=== PATIENT | female | born 1995 | race Caucasian/White ===

== ENCOUNTER 2017-09-18 19:49 | Emergency (ER) | payer BC ==
[2017-09-18 20:17] LABS: #Lymphocytes 0.4 thou/uL (1.20-3.40); #Monocytes 0.2 thou/uL (0.11-0.59); #Neutrophils 8.6 thou/uL (1.40-6.50); %Basophils 0.2 % (0.0-1.0); %Neutrophils 93.8 % (31.0-61.0); Hemoglobin 13.6 g/dL (12.0-16.0); Mean Corpuscular HGB CONC 35.3 g/dL (32.0-36.0); Mean Corpuscular Hemoglobin 31.3 pg (25.0-35.0); Mean Corpuscular Volume 88.7 fl (77.0-87.0); Mean Platelet Volume 7.6 fL (7.4-10.4); Platelet Count 189 thou/uL (130-400); RBC Distribution Width 10.6 % (11.5-14.5); Red Blood Cell (RBC) Count 4.34 mill/uL (4.00-5.20); White Blood Cell (WBC) Count 9.2 thou/uL (4.8-10.8)
[2017-09-18 20:24] LABS: BHCG - Serum Negative (NEGATIVE); Pregs Control Background? CLEAR/WHITE (CLR/WHITE); Pregs Control Bar Appear? YES (CONTROL BAR)
[2017-09-18 20:33] LABS: ALT (SGPT) 13 U/L (8-55); AST (SGOT) 15 U/L (5-30); Albumin 3.8 g/dL (3.5-5.0); Alkaline Phosphatase 50 U/L (40-150); Anion Gap 15 mmol/L (10-20); BUN (Urea Nitrogen) 15 mg/dL (8.4-21.0); Bilirubin, Total 0.7 mg/dL (0.2-1.2); Calc. Creatinine Clearance 0 mL/min (70-130); Calcium 8.2 mg/dL (7.8-10.44); Carbon Dioxide 20 mmol/L (22-29); Chloride 102 mmol/L (98-107); Estimated GFR-MDRD Greater than 90; Globulin 2.8 g/dL (2.4-3.5); Glucose 106 mg/dL (70-105); Potassium 3.7 mmol/L (3.5-5.1); Protein, Total 6.6 g/dL (6.0-8.3); Sodium 133 mmol/L (136-145)
--- NOTE | 2017-09-18 21:50 | CT ---
CT PULMONARY ANGIO OF CHEST INCLUDING 3D RENDERIN09/18/17 HISTORY: 21-year-old female with chest pain. No significant CT evidence for acute pulmonary embolism. Mediastinum is unremarkable. No pleural or p ericardial effusion. Visualized upper abdomen is unremarkable. Aorta is unremarkable. IMPRESSION: No significant CT evidence for acute pulmonary embolism. No acute process in the chest. POS: [facility]
== END 2017-09-18 22:06 | disposition home or self-care (01) ==
LOC: SCSER 19:49
DX: R11.2 Nausea with vomiting, unspecified (principal); R07.9 Chest pain, unspecified
CPT/HCPCS: 71275; 80053; 84703; 85025; 93005; 96360

== ENCOUNTER 2023-08-01 02:48 | Emergency (ER) | payer BC ==
[2023-08-01] MEDS ORDERED: Ketorolac Tromethamine 30 MG/ML VIAL ONE (04:03)
[2023-08-01 04:08] LABS: Amphetamine Not Detected (NotDetected); Barbiturates Screen Not Detected (NotDetected); Benzodiazepine Screen Not Detected (NotDetected); Cocaine Metabolite Screen Not Detected (NotDetected); Methadone Not Detected (NotDetected); Methamphetamine Not Detected (NotDetected); Opiate Screen Not Detected (NotDetected); Oxycodone Screen Not Detected (NotDetected); Phencyclidine (PCP) Not Detected (NotDetected); THC/Cannabinoid Screen Not Detected (NotDetected); Tricyclic Screen Not Detected (NotDetected)
[2023-08-01 04:16] LABS: #Basophils 0.1 thou/uL (0.0-0.2); #Eosinphils 0.1 thou/uL (0.0-0.7); #Monocytes 0.4 thou/uL (0.11-0.59); #Neutrophils 4.7 thou/uL (1.40-6.50); %Basophils 0.6 % (0.0-1.0); %Lymphocytes 35.3 % (21.0-51.0); %Monocytes 4.9 % (0.0-10.0); Hematocrit 37.7 % (36.0-47.0); Mean Corpuscular HGB CONC 34.5 g/dL (32.0-36.0); Mean Corpuscular Hemoglobin 32.7 pg (27.0-31.0); Mean Corpuscular Volume 94.7 fl (78.0-98.0); Mean Platelet Volume 9.1 fL (7.4-10.4); Platelet Count 286 10x3/uL (130-400); RBC Distribution Width 11.7 % (11.5-14.5); Red Blood Cell (RBC) Count 3.98 mill/uL (4.20-5.40); White Blood Cell (WBC) Count 8.2 10x3/uL (4.8-10.8)
[2023-08-01 04:21] LABS: Pregnancy Test - Urine (BHCG) Negative (Negative); Pregu Control Background? CLEAR/WHITE (CLR/WHITE); Pregu Control Bar Appear? YES (CONTROL BAR)
[2023-08-01 04:41] LABS: ALT (SGPT) 13 U/L (8-55); AST (SGOT) 18 U/L (5-34); Albumin 4.3 g/dL (3.5-5.0); Alkaline Phosphatase 86 U/L (40-110); Anion Gap 16 mmol/L (10-20); BUN (Urea Nitrogen) 7 mg/dL (7.0-18.7); Bilirubin, Total 0.2 mg/dL (0.2-1.2); Calc. Creatinine Clearance 0 mL/min (70-130); Calcium 8.1 mg/dL (7.8-10.44); Carbon Dioxide 20 mmol/L (22-29); Chloride 115 mmol/L (98-107); Estimated GFR 127; Glucose 80 mg/dL (70-105); Lipase 34 U/L (8-78); Potassium 3.6 mmol/L (3.5-5.1); Protein, Total 7.3 g/dL (6.0-8.3); Sodium 147 mmol/L (136-145)
[2023-08-01 04:43] LABS: Troponin I Less than 0.010 ng/mL (< 0.028)
[2023-08-01 04:51] LABS: Bacteria/HPF None Seen HPF (None Seen); Bilirubin Negative (Negative); Blood, Urine Negative (Negative); CAUTI Indications for Culture Alt mental st,lethar; Clarity Clear (Clear); Glucose, Urine (Dipstick) Normal (Negative); Ketone, Urine Negative (Negative); Leukocyte Negative Leu/uL (Negative); Nitrite Negative (Negative); Protein, Urine (Dipstick) Negative (Neg-Trace); RBC/HPF 0-3 HPF (0-3); Specific Gravity 1.002 (1.002-1.036); Specific Gravity, Urine 1.002 (1.002-1.036); Squamous Epithelial 0-3 HPF (0-3); Urine Culture Reflex No No; Urobilinogen Normal mg/dL (Less than 2); WBC/HPF 0-3 HPF (0-3)
[2023-08-01 05:25] LABS: Acetaminophen Less than 10 mcg/mL (10.0-30.0); Alcohol 334.5 mg/dL (Less than 10); Salicylate Less than 8.0 mg/dL (15.0-30.0)
== END 2023-08-01 05:20 | disposition home or self-care (01) ==
LOC: ERS 02:48
DX: F10.129 Alcohol abuse with intoxication, unspecified (principal); Y90.9 Presence of alcohol in blood, level not specified
CPT/HCPCS: 36415; 71045; 80053; 80306; 80307; 81001; 81025; 83690; 83735; 84484; 85025; 93005; 96374; J1885